=== PATIENT | female | born 1990 ===

== ENCOUNTER 2023-03-21 06:50 | Inpatient (IN) | payer BC ==
[2023-03-21] MEDS ORDERED: Carboprost Tromethamine 250 MCG/1 mL Vial IM PRN (07:46)
[2023-03-21] MEDS ORDERED: Sodium Chloride 0.9% 2.5 ML Syringe FLUSH PRN (07:46)
[2023-03-21] MEDS ORDERED: Sodium Chloride 0.9% 10 ML Syringe FLUSH PRN (07:46)
[2023-03-21] MEDS ORDERED: Nalbuphine 10 MG/0.5 ML Syringe IVPUSH PRN (07:46)
[2023-03-21] MEDS ORDERED: Water For Irrigation,Sterile 1,000 ML Container IRR PRN (07:46)
[2023-03-21] MEDS ORDERED: Misoprostol 200 MCG Tab PO PRN (07:46)
[2023-03-21] MEDS ORDERED: Sodium Chloride 0.9% 20 ML SDV IV PRN (07:46)
[2023-03-21] MEDS ORDERED: Tranexamic Acid IN NACL,ISO-OS 1,000 MG in Premix Bag 1 BAG IV PRN (07:46)
[2023-03-21] MEDS ORDERED: Ondansetron 4 MG/2 ML SDV IVPUSH PRN (07:46)
[2023-03-21] MEDS ORDERED: Methylergonovine 0.2 MG/1 ML Amp IM PRN (07:46)
[2023-03-21] MEDS ORDERED: Labetalol 100 MG/20 ML MDV IVPUSH ONE (07:51)
[2023-03-21] MEDS ORDERED: Phenylephrine HCl 0.5 MG/5 ML AMP IVPUSH PRN (08:22)
[2023-03-21] MEDS ORDERED: ePHEDrine 50 MG/ML SDV IVPUSH PRN ×2 (08:22)
[2023-03-21] MEDS: Labetalol 100 MG/20 ML MDV IVPUSH ONE (08:39)
[2023-03-21 08:53] LABS: HEMATOCRIT 37.5 % (37.0-47.0); HEMOGLOBIN 13.1 g/dL (12.0-16.0); MEAN CORPUSCULAR HEMOGLOBIN 30.3 pg (28.0-32.0); MEAN CORPUSCULAR HGB CONC 34.9 g/dL (32.0-36.0); MEAN CORPUSCULAR VOLUME 86.8 fL (83.0-99.0); MEAN PLATELET VOLUME 10.1 fL (9.4-12.3); PLATELET COUNT,PLT 249 K/uL (150-400); RED BLOOD CELL COUNT 4.32 M/uL (4.10-5.30)
[2023-03-21] MEDS: Lactated Ringers 1,000 ML IV SCH (09:00)
[2023-03-21] MEDS ORDERED: dexmedeTOMIDine HCl 200 MCG/2 ML SDV ONE (09:39)
[2023-03-21] MEDS ORDERED: fentaNYL 100 MCG/2 ML SDV ONE (09:39)
[2023-03-21] MEDS: Ropivacaine HCl/PF 400 MG in Premix Bag 1 BAG EPIDUR SCH (09:58)
[2023-03-21] MEDS ORDERED: Bupivacaine 0.25% 10 ML SDV ONE (09:59)
[2023-03-21] MEDS: Oxytocin/0.9 % Sodium Chloride 30 UNIT/500 ML BAG IV SCH (16:40)
[2023-03-21] MEDS: Lidocaine 1% 50 ML MDV INJECT PRN (16:45)
[2023-03-21] MEDS ORDERED: Lanolin 100% Cream 7 GM Tube TOP PRN (17:40)
[2023-03-21] MEDS ORDERED: oxyCODONE 5 MG Tab PO PRN (17:40)
[2023-03-21] MEDS: Witch Hazel Medicated Pads 40/Jar TOP PRN (19:54)
[2023-03-21] MEDS: Benzocaine/Menthol 20%-0.5% Spray 78 GM Cannister TOP PRN (19:55)
[2023-03-21] MEDS: Ibuprofen 800 MG Tab PO PRN (19:59)
[2023-03-21] MEDS: Acetaminophen 500 MG Tab PO PRN (23:05)
[2023-03-21] MEDS: Docusate Sodium 100 MG Cap PO PRN (23:28)
[2023-03-22 05:40] LABS: HEMATOCRIT 31.9 % (37.0-47.0)
[2023-03-22] MEDS ORDERED: Lidocaine 1% 50 ML MDV ONE (10:21)
== END 2023-03-22 20:41 | disposition home or self-care (01) | DRG 560 ==
LOC: MW.OBCHECK 06:50 → MW.OB 06:52 → MW.OBCHECK 07:46 → MW.OB 08:07 → OBSVTOIN 16:35 → MW.OB 23:58
PROVIDERS: ADMIT Obstetrics & Gynecology; ATTEND Obstetrics & Gynecology
PROC: 10E0XZZ Delivery of Products of Conception, External Approach (ICD-10-PCS; principal; 2023-03-21)
PROC: 0KQM0ZZ Repair Perineum Muscle, Open Approach (ICD-10-PCS; 2023-03-21)
PROC: 3E0R3BZ Introduction of Anesthetic Agent into Spinal Canal, Percutaneous Approach (ICD-10-PCS; 2023-03-21)
PROC: 00HU33Z Insertion of Infusion Device into Spinal Canal, Percutaneous Approach (ICD-10-PCS; 2023-03-21)
DX: O42.02 Full-term premature rupture of membranes, onset of labor within 24 hours of rupture (principal); Z37.0 Single live birth; O69.81X0 Labor and delivery complicated by cord around neck, without compression, not applicable or unspecified; O70.1 Second degree perineal laceration during delivery; Z3A.38 38 weeks gestation of pregnancy
CPT/HCPCS: 01967; 36415; 51702; 59025; 59409; 84112; 85014; 85018; 85027; 86592; 86850; 86900; 86901; A9270-GY; J1921; J2001; J2590; J2795; J7120